=== PATIENT | female | born 1945 | race Caucasian/White ===

== ENCOUNTER → 2017-10-24 | Outpatient (REF) | payer MEDICARE, OTHER | LOC: M LAB REF 13:01 | DX: L02.511 Cutaneous abscess of right hand (principal) | CPT/HCPCS: 87186 ==

== ENCOUNTER → 2024-11-02 | Outpatient (CLI) | payer MEDICARE, BC, OTHER | LOC: M RAD 14:32 | PROVIDERS: ATTEND Family Medicine | DX: I65.23 Occlusion and stenosis of bilateral carotid arteries (principal); Z86.73 Personal history of transient ischemic attack (TIA), and cerebral infarction without residual deficits ==